=== PATIENT | female | born 1985 | race Caucasian/White ===

== ENCOUNTER 2016-11-22 22:57 | Emergency (ER) | payer SELFPAY ==
--- NOTE | 2016-11-22 23:26 | ERNOTE ---
Medical Problem HPI - General Chief Complaint: Fever Time Seen by Provider: 11/22/16 23:22 Source: patient Exam Limitations: no limitations - Immun/Allergies/Home Medications Immunizations: IMMUNIZATION HX Immunizations Up to Date No History of Influenza Vaccine No Hx Pneumococcal Vaccination No Allergies/Adverse Reactions: Allergies No Known Allergies Allergy (Unverified 11/22/16 23:02) Home Medications: HOME MEDICATIONS Oseltamivir Phosphate [Tamiflu] 75 mg PO DAILY #10 cap 11/23/16 [Last Taken Unknown] - History of Present History Narrative: Pt has had cough, fever and general malaise for 2 days. Timing: getting worse Severity: moderate Modifying Factors - (Improves): Absent: medication Review of Systems - Review of Systems Constitutional: Present: fever, chills EYE: Present: no symptoms reported ENT: Present: nose congestion, nasal drainage, sore throat - when coughing Respiratory: Present: cough. Absent: shortness of breath Cardiology: Absent: chest pain Gastrointestinal/Abdominal: Absent: nausea, vomiting Genitourinary: Present: no symptoms reported Musculoskeletal: Present: no symptoms reported Skin: Present: no symptoms reported Neurological: Present: no symptoms reported Endocrine: Present: no symptoms reported Hematologic/Lymphatic: Present: no symptoms reported Psych: Present: no symptoms reported - Patient's Past Medical History Patient History - Medical: No pertinent hx Patient History - Cardiac/Respiratory: No pertinent hx, Pneumonia Patient History - Cancer: No Hx of Cancer Patient History - Surgical Procedures: Ear Tubes, T & A Patient History - Other: None LMP (females 10-50): now - Social History Living Situations: home Abuse History: No History of abuse Psych History: No pertinent hx Smoking Status: Current every day smoker Patient requests Smoking Cessation Consult: No Initiate information on Smoking Cessation: No Alcohol Use: none Drug Use: none - Immunizations Immunizations Up to Date: No Hx Pneumococcal Vaccination: No History of Influenza Vaccine: No Physical Exam - Physical Exam General Appearance: Present: wd/wn, alert, no apparent distress Eye Exam: Normal inspection: bilateral Ears, Nose, Throat: Present: normal ENT inspection Neck: Present: normal inspection, nontender Respiratory: Present: no respiratory distress, normal breath sounds, lungs clear Cardiovascular/Chest: Present: regular rate, rhythm, no murmur, normal peripheral pulses Back Exam: Present: normal inspection Extremity Exam: Present: normal inspection Neurological Exam: Present: alert, oriented, normal mood/affect, no motor/ sensory deficits Skin Exam: Present: normal color, warm/dry ED Progress - Results and Orders Patient's Lab Results:: I have reviewed the patient's lab results. Results and Orders: Laboratory Tests 11/22/16 23:10 Influenza Type A Ag Positive H Influenza Type B Ag Negative - Vital Signs Patient's Vital Signs:: I have reviewed the patient's vital signs. Vital Signs: Vital Signs 11/22/16 23:02 Temperature 38.4 C H Pulse Rate 106 H Respiratory 18 Rate Blood Pressure 114/53 O2 Sat by Pulse 99 Oximetry - Progress/Reassessment Chief Complaint: Fever Departure - Departure Clinical Impression: Influenza A Disposition: Home self-care Condition: Fair Instructions: Influenza, Adult, [id number] Prescriptions: Oseltamivir Phosphate [Tamiflu] 75 mg PO DAILY #10 cap
[2016-11-23] MEDS ORDERED: OSELTAMIVIR PHOSPHATE 75 MG CAPSULE PO ONE ×2 (00:01)
--- OUTSIDE RECORDS SUMMARY | 2016-11-23 00:11 | XMS REPORT | Continuity of Care Document ---
:1985 Author Organization [facility] [place] [address] Care Team Providers Name Role Phone Unavailable Primary Care Provider Unavailable Source Comments This disclosure is being made pursuant to the Must See [place] program and maynot contain all information available regarding this patient.[facility] Active Allergies and Adverse Reactions Not on File Current Medications Be aware that medications may not be up to date as of this document. Alwaysverify current medications with the patient. Not on file Active Problems Not on file Social History Tobacco Use Types Packs/Day Years Used Date Former Smoker Plan of Care Health Maintenance Due Date Last Done Comments Retired-Pertussis Vaccine Adult 2003 Retired-Tetanus Vaccine Adult 2003 Pap Smear 2005 Retired-INFLUENZA VACCINE 04/21/2015 Results from Last 3 Months Not on file
[2016-11-23 00:16] VITALS: BP 115/68
== END 2016-11-23 00:10 | disposition home or self-care (01) ==
LOC: ER 22:57
DX: J10.1 Influenza due to other identified influenza virus with other respiratory manifestations (principal); Z72.0 Tobacco use